=== PATIENT | female | born 1935 | race Caucasian/White ===

== ENCOUNTER 2017-08-31 19:41 | Emergency (ER) | payer OTHER ==
[~2017-08-31] VITALS: Ht 170.2 cm; Wt 59.0 kg
[~2017-08-31 19:41] MED LIST: AMLO2.5T PO; ATOR80TA41 PO; LISI10 PO; OMEP20TA39 PO; ST JTAB PO
[2017-08-31 19:43] VITALS: BP 182/84; PULSE 70; RESP 18; TEMP 97; O2SAT 96
--- NOTE | 2017-08-31 19:53 | PD ---
HPI Chief Complaint: nausea Time Seen by Provider: 19:46 Travel History International Travel<30 days: No Contact w/Intl Traveler<30days: No Traveled to known affect area: No History of Present Illness HPI 82-year-old female presents to the emergency department from home via EMS transport for evaluation of nausea. Patient reportedly has not felt well for the past 4 days with cough and congestion nausea and weakness. No report of fever or chills. No report of vomiting or diarrhea or abdominal pain. Patient denies any pain. Denies chest pain or shortness of breath. Denies productive cough. No report of hemoptysis hematemesis coffee-ground emesis melena hematochezia. Patient reports [place] able [place] walk [place] the [place] which is her normal. Patient reportedly was seen by her primary care provider earlier today in the office and diagnosed presumptively/clinically with influenza and was given a prescription. Patient states she filled the prescription took 1 dose of the medication has felt worse since taking the medication with increasing/persistent nausea. Patient has history of hypertension and anxiety. EMS reports that fire administered 1 dose of Zofran IV prior to arrival to the paramedics as well as obtain IV access. Patient's blood sugar was within acceptable range reportedly. Patient denies any pain and rates her discomfort 0 /10 intensity. PFSH Past Medical History Narrative Medical COPD hypertension dyslipidemia GERD diminished hearing anxiety lumbar disc disease s/p back surgery; no tobacco use; nursing notes reviewed Arthritis: No Asthma: Yes Autoimmune Disease: No Blood Disorders: No Anxiety: Yes Depression: No Heart Rhythm Problems: No Cancer: No Cardiovascular Problems: Yes High Cholesterol: Yes Chemotherapy: No Chest Pain: No Congestive Heart Failure: No COPD: Yes Cerebrovascular Accident: No Diabetes: No Diminished Hearing: Yes ([place], HEARING AIDS) Endocrine: No Gastrointestinal Disorders: Yes GERD: Yes Genitourinary: No Headaches: Yes Hiatal Hernia: No Hypertension: Yes Immune Disorder: No Implanted Vascular Access Dvce: No Kidney Stones: No Musculoskeletal: Yes (Back Pain , ruptured disc ) Neurologic: Yes Psychiatric: Yes Reproductive: No Respiratory: No Immunizations Current: No Migraines: No Myocardial Infarction: No Radiation Therapy: No Renal Failure: No Seizures: No Sickle Cell Disease: No Thyroid Disease: No Ulcer: No PNEUMOCCOCAL Vaccine (Year): 1 Menopausal: Yes Past Surgical History Abdominal Surgery: No AICD: No Arteriovenous Shunt: No Body Medical Devices: HX OF BACK SX Cardiac Surgery: No Ear Surgery: No Endocrine Surgery: No Eye Surgery: No Genitourinary Surgery: No Gynecologic Surgery: No Insulin Pump: No Joint Replacement: No Oral Surgery: No Pacemaker: No Thoracic Surgery: No Other Surgery: Yes (BACK RUPTURED DISC) Social History Alcohol Use: No Tobacco Use: No Substance Use: No Allergies-Medications (Allergen,Severity, Reaction): Coded Allergies: No Known Allergies (Unverified Adverse Reaction, Unknown, 08/31/17) Reported Meds & Prescriptions Reported Meds & Active Scripts Active Reported Zithromax Z-Roman (Azithromycin) 250 Mg Dspk 250 Mg PO DIRECTED 500 MG (2 tabs) day 1, then 1 tab days 2-5. Benzonatate 100 Mg Cap 100 Mg PO TID PRN Omeprazole 20 Mg Tab 20 Mg PO DAILY Lisinopril 10 Mg Tab 10 Mg PO DAILY Atorvastatin (Atorvastatin Calcium) 40 Mg Tab 40 Mg PO HS Aspirin 81 Mg Chew 81 Mg CHEW DAILY Amlodipine (Amlodipine Besylate) 2.5 Mg Tab 2.5 Mg PO DAILY Review of Systems Except as stated in HPI: all other systems reviewed are Neg General / Constitutional: No: Fever, Chills HENT: No: Congestion Cardiovascular: No: Chest Pain or Discomfort Respiratory: Positive: Cough, No: Shortness of Breath, Wheezing Gastrointestinal: Positive: Nausea, No: Vomiting, Diarrhea, Abdominal Pain Genitourinary: No: Dysuria, Flank Pain Musculoskeletal: No: Myalgias, Arthralgias Skin: No Rash Neurologic: Positive: Weakness, No: Dizziness, Syncope, Focal Abnormalities, Coordination Problem Psychiatric: No: Anxiety Hematologic/Lymphatic: No: Easy Bruising Physical Exam Narrative GENERAL: Well-developed well-nourished elderly female in no acute distress or respiratory distress; GCS 15 SKIN: Warm and dry. HEAD: Atraumatic. Normocephalic. EYES: Pupils equal and round. No scleral icterus. No injection or drainage. ENT: No nasal bleeding or discharge. Mucous membranes pink and moist. NECK: Trachea midline. No JVD. CARDIOVASCULAR: Regular rate and rhythm. RESPIRATORY: No accessory muscle use. Clear to auscultation. Breath sounds equal bilaterally. GASTROINTESTINAL: Abdomen soft, non-tender, nondistended. Hepatic and splenic margins not palpable. MUSCULOSKELETAL: Extremities without clubbing, cyanosis, or edema. No obvious deformities. NEUROLOGICAL: Awake and alert. No obvious cranial nerve deficits. Motor grossly within normal limits. Five out of 5 muscle strength in the arms and legs. Normal speech. PSYCHIATRIC: Appropriate mood and affect; insight and judgment normal. Data Data Last Documented VS Vital Signs Date Time Temp Pulse Resp B/P (MAP) Pulse Ox O2 Delivery O2 Flow Rate FiO2 08/31/17 23:09 64 18 149/72 (97) 94 08/31/17 21:48 Room Air 08/31/17 20:11 98.0 Orders Orders Electrocardiogram (08/31/17 19:46) Ckmb (Isoenzyme) Profile (08/31/17 19:46) Complete Blood Count With Diff (08/31/17 19:46) Comprehensive Metabolic Panel (08/31/17 19:46) Magnesium (Mg) (08/31/17 19:46) Prothrombin Time / Inr (Pt) (08/31/17 19:46) Act Partial Throm Time (Ptt) (08/31/17 19:46) Troponin I (08/31/17 19:46) Lipase (08/31/17 19:46) Chest, Single Ap (08/31/17 19:46) Ecg Monitoring (08/31/17 19:46) Bilateral Bp Monitoring (08/31/17 19:46) Iv Access Insert/Monitor (08/31/17 19:46) Oximetry (08/31/17 19:46) Oxygen Administration (08/31/17 19:46) Sodium Chloride 0.9% Flush (Ns Flush) (08/31/17 20:00) Lactic Acid (08/31/17 19:46) Influenzae A/B Antigen (08/31/17 19:46) Urinalysis - C+S If Indicated (08/31/17 20:08) CKMB (08/31/17 20:00) CKMB% (08/31/17 20:00) Metoclopramide Inj (Reglan Inj) (08/31/17 22:15) Ed Discharge Order (08/31/17 23:04) Labs Laboratory Tests Test 08/31/17 20:00 08/31/17 20:10 White Blood Count 3.3 TH/MM3 Red Blood Count 3.66 MIL/MM3 Hemoglobin 11.6 GM/DL Hematocrit 34.0 % Mean Corpuscular Volume 92.9 FL Mean Corpuscular Hemoglobin 31.8 PG Mean Corpuscular Hemoglobin Concent 34.2 % Red Cell Distribution Width 12.5 % Platelet Count 147 TH/MM3 Mean Platelet Volume 7.0 FL Neutrophils (%) (Auto) 67.2 % Lymphocytes (%) (Auto) 21.0 % Monocytes (%) (Auto) 10.7 % Eosinophils (%) (Auto) 0.7 % Basophils (%) (Auto) 0.4 % Neutrophils # (Auto) 2.3 TH/MM3 Lymphocytes # (Auto) 0.7 TH/MM3 Monocytes # (Auto) 0.3 TH/MM3 Eosinophils # (Auto) 0.0 TH/MM3 Basophils # (Auto) 0.0 TH/MM3 CBC Comment DIFF FINAL Differential Comment Prothrombin Time 10.7 SEC Prothromb Time International Ratio 1.1 RATIO Activated Partial Thromboplast Time 27.8 SEC Blood Urea Nitrogen 23 MG/DL Creatinine 1.10 MG/DL Random Glucose 108 MG/DL Total Protein 7.8 GM/DL Albumin 3.5 GM/DL Calcium Level 8.8 MG/DL Magnesium Level 1.7 MG/DL Alkaline Phosphatase 93 U/L Aspartate Amino Transf (AST/SGOT) 33 U/L Alanine Aminotransferase (ALT/SGPT) 26 U/L Total Bilirubin 0.3 MG/DL Sodium Level 131 MEQ/L Potassium Level 4.1 MEQ/L Chloride Level 96 MEQ/L Carbon Dioxide Level 28.1 MEQ/L Anion Gap 7 MEQ/L Estimat Glomerular Filtration Rate 48 ML/MIN Lactic Acid Level 0.8 mmol/L Total Creatine Kinase 192 U/L Creatine Kinase MB 4.6 NG/ML Troponin I 0.02 NG/ML Lipase 151 U/L Urine Color YELLOW Urine Turbidity CLEAR Urine pH 7.5 Urine Specific [place] 1.010 Urine Protein NEG mg/dL Urine Glucose (UA) NEG mg/dL Urine Ketones NEG mg/dL Urine Occult Blood TRACE Urine Nitrite NEG Urine Bilirubin NEG Urine Leukocyte Esterase NEG Urine RBC 0-3 /hpf Urine WBC 0-2 /hpf Urine Squamous Epithelial Cells 0-5 /hpf Urine Bacteria RARE /hpf Microscopic Urinalysis Comment CULT NOT INDICATED MDM Medical Decision Making Medical Screen Exam Complete: Yes Emergency Medical Condition: Yes Medical Record Reviewed: Yes Interpretation(s) EKG: Normal sinus rhythm rate 65 QRS septally age-indeterminate V1 V2 no acute ST elevation or ectopy noted; septal changes are new since prior EKG 02/11/16 Influenza A/B antigen: Positive influenza B CK 192, not elevated; MB 4.6 elevated; MB percent 2.2% not elevated Troponin I less than 0.02, not elevated Lactic acid 0.8, not elevated CBC with automated differential mild decreased total white cell count of 3300 with absolute neutrophil #2300 automated differential grossly within normal limits except for mild monocytosis mild anemia and mild thrombocytopenia Metabolic panel remarkable for renal insufficiency creatinine 1.10 (near her baseline) with a GFR of 48 Urinalysis grossly within normal limits Coagulation studies within normal limits CBC & BMP Diagram 08/31/17 20:00 Total Protein 7.8, Albumin 3.5, Calcium Level 8.8, Magnesium Level 1.7, Alkaline Phosphatase 93, Aspartate Amino Transf (AST/SGOT) 33, Alanine Aminotransferase (ALT/SGPT) 26, Total Bilirubin 0.3 Last Impressions Chest X-Ray 08/31/171945 Signed Impressions: Service Date/Time: Thursday, August 31, 2017 21:09 - CONCLUSION: No acute pulmonary infiltrates. Osei Julien MD Differential Diagnosis Nausea, adverse medication reaction, electrolyte disturbance, atypical chest pain, ACS, [place], arrhythmia, viral syndrome, UTI, sepsis Narrative Course Patient placed on english language learner tutor with continuous pulse oximetry IV access obtained prior to arrival to the department specimens collected and sent for resulting EKG ordered; glucose: 118. EKG: Normal sinus rhythm rate 65 QRS septally age-indeterminate V1 V2 no acute ST elevation or ectopy noted; septal changes are new since prior EKG 02/11/16 Influenza A/B antigen: Positive influenza B CK 192, not elevated; MB 4.6 elevated; MB percent 2.2% not elevated Troponin I less than 0.02, not elevated Lactic acid 0.8, not elevated CBC with automated differential mild decreased total white cell count of 3300 with absolute neutrophil #2300 automated differential grossly within normal limits except for mild monocytosis mild anemia and mild thrombocytopenia Metabolic panel remarkable for renal insufficiency creatinine 1.10 (near her baseline) with a GFR of 48 Urinalysis grossly within normal limits Coagulation studies within normal limits At 9 PM patient is informed that her influenza B antigen is positive. Patient has been having symptoms for 4 days therefore out of the window for beneficial administration of Tamiflu. Patient no longer reports any nausea. CXR: pending RN called pharmacy and confirmed RX zpak and meagan hurt At 10:05 PM patient now again complains of nausea; patient administered Reglan 10 mg IV blood pressure is starting to correct on its own, BP: 169/76. Patient feels well after Reglan, no nausea no vomiting able to tolerate oral hydration; patient is aware that her flu test is positive is encouraged to follow-up with her primary care provider is aware that she is not a Tamiflu candidate due to duration of symptoms, and to continue her chronic medications as clinically prescribed. Patient is encouraged to monitor temperature and take acetaminophen as needed for fever 100.4F or greater. Patient is encouraged to return to the emergency department for concerns or change in condition. Diagnosis Primary Impression: Influenza B Additional Impressions: Nausea COPD (chronic obstructive pulmonary disease) Qualified Codes: J44.9 - Chronic obstructive pulmonary disease, unspecified Referrals: Primary Care Physician 1 day Patient Instructions: General Instructions Additional Instructions: Follow-up with primary care provider Monitor temperature every 4 hours with the monitor and take as needed acetaminophen/Tylenol for fever 100.4F or greater Return to the emergency department for any concerns or change in condition Increase fluid hydration continue current medications as currently prescribed Med/Other Pt SpecificInfo: No Change to Meds Disposition: 01 DISCHARGE HOME Condition: Stable Anabel Lopez MD Aug 31, 2017 19:53
[2017-08-31] MEDS ORDERED: SODIUM CHLORIDE 0.9% FLUSH 10 ML FLUSH IVF PRN (20:00)
[2017-08-31 20:09] VITALS: PULSE 67; RESP 18; O2SAT 94
[2017-08-31 20:11] VITALS: BP_SYST 172; BP_SYST 174; BP_DIAS 84; BP_DIAS 90; PULSE 67; RESP 18; TEMP 98; O2SAT 95
[2017-08-31 20:15] LABS: AUTOMATED NEUTROPHIL # 2.3 TH/MM3 (1.8-7.7); BASOPHIL % 0.4 % (0.0-2.0); EOSINOPHIL % 0.7 % (0.0-4.0); HEMOGLOBIN 11.6 GM/DL (11.6-15.3); LYMPHOCYTE # 0.7 TH/MM3 (1.0-4.8); MEAN CELL VOLUME 92.9 FL (80.0-100.0); MEAN CORPUSCULAR HEMOGLOBIN 31.8 PG (27.0-34.0); MEAN CORPUSCULAR HGB CONC 34.2 % (32.0-36.0); MONO % 10.7 % (0.0-8.0); MONOCYTE # 0.3 TH/MM3 (0-0.9); NEUT % 67.2 % (16.0-70.0); PLATELET COUNT 147 TH/MM3 (150-450); RED BLOOD COUNT 3.66 MIL/MM3 (4.00-5.30); RED CELL DISTRIBUTION WIDTH 12.5 % (11.6-17.2); WHITE BLOOD COUNT 3.3 TH/MM3 (4.0-11.0)
[2017-08-31 20:27] LABS: CHLORIDE 96 MEQ/L (98-107); SODIUM (NA) 131 MEQ/L (136-145)
[2017-08-31 20:28] LABS: BILIRUBIN, URINE NEG (NEG); BLOOD, URINE TRACE (NEG); GLUCOSE,URINE NEG (NEG); KETONE, URINE NEG (NEG); NITRITE,URINE NEG (NEG); PH, URINE 7.5 (5.0-8.5); URINE LEUKOCYTE ESTERASE NEG (NEG)
[2017-08-31 20:31] LABS: CALCIUM 8.8 MG/DL (8.5-10.1)
[2017-08-31 20:32] LABS: ALBUMIN 3.5 GM/DL (3.4-5.0); BICARBONATE 28.1 MEQ/L (21.0-32.0); BLOOD UREA NITROGEN 23 MG/DL (7-18); GLUCOSE,RANDOM 108 MG/DL (74-106); MAGNESIUM 1.7 MG/DL (1.5-2.5)
[2017-08-31 20:32] LABS: RBC, URINE 0-3 /hpf (0-3); URINE COLOR YELLOW (YELLW/STRAW); WBC, URINE 0-2 /hpf (0-5)
[2017-08-31 20:33] LABS: INTERNATIONAL NORMALIZED RATIO 1.1 RATIO; PROTHROMBIN TIME - PATIENT 10.7 SEC (9.8-11.6)
[2017-08-31 20:33] LABS: BACTERIA, URINE RARE /hpf; SQUAMOUS EPITHELIAL CELL URINE 0-5 /hpf (0-5)
[2017-08-31 20:34] LABS: ALT (GPT) 26 U/L (10-53); AST (GOT) 33 U/L (15-37)
[2017-08-31 20:35] LABS: GLOMERULAR FILTRATION RATE 48 ML/MIN (>89)
[2017-08-31 20:36] LABS: TOTAL BILIRUBIN ADULT 0.3 MG/DL (0.2-1.0); TOTAL PROTEIN 7.8 GM/DL (6.4-8.2)
[2017-08-31 20:37] LABS: ALKALINE PHOSPHATASE 93 U/L (45-117)
[2017-08-31 20:40] LABS: TROPONIN I 0.02 NG/ML (0.02-0.05)
[2017-08-31] MEDS ORDERED: OMEP20TA93 PO (20:45)
[2017-08-31] MEDS ORDERED: ZITHTAB PO (20:45)
[2017-08-31] MEDS ORDERED: LISI10TA3 PO (20:45)
[2017-08-31] MEDS ORDERED: AMLO2.5T PO (20:45)
[2017-08-31] MEDS ORDERED: ATOR40TA16 PO (20:45)
[2017-08-31] MEDS ORDERED: ASPI-516 CHEW (20:45)
[2017-08-31] MEDS ORDERED: BENZ1CAP54 PO (20:45)
[2017-08-31 20:49] VITALS: BP 180/79; PULSE 66; RESP 18; O2SAT 94
[2017-08-31 21:48] VITALS: BP 169/76; PULSE 70; RESP 18; O2SAT 96
--- NOTE | 2017-08-31 21:49 | RADRPT ---
EXAM DATE/TIME: 08/31/2017 21:09 [facility] COMPARISON: No previous studies available for comparison. INDICATIONS : Vomiting. MEDICAL HISTORY : Hypertension. Hypercholesterolemia. Chronic obstructive pulmonary disease. GERD. SURGICAL HISTORY : None. ENCOUNTER: Initial ACUITY: 1 day PAIN SCORE: 0/10 LOCATION: Bilateral chest FINDINGS: A single view of the chest demonstrates the lungs to be symmetrically aerated without evidence of mas s, infiltrate or effusion. The cardiomediastinal contours are unremarkable. Osseous structures are intact. CONCLUSION: No acute pulmonary infiltrates. Osei Julien MD on August 31, 2017 at 21:46 Board Certified Radiologist. This report was verified electronically.
[2017-08-31] MEDS ORDERED: METOCLOPRAMIDE HCL 10 MG/2 ML VIAL IV PUSH ONE (22:15)
[2017-08-31 23:09] VITALS: BP 149/72
--- NOTE | 2017-09-01 12:52 | EKG ---
Date Performed: 08/31/2017 Time Performed: 19:57:11 PTAGE: 82 years EKG: Sinus rhythm SEPTAL MYOCARDIAL INFARCTION ABNORMAL ECG PREVIOUS TRACING : 02/11/2016 10.12 DOCTOR: Marcus Hennessy Interpretating Date/Time 09/01/2017 12:48:18
== END 2017-08-31 23:29 | disposition home or self-care (01) ==
LOC: PHED 19:41
DX: J10.1 Influenza due to other identified influenza virus with other respiratory manifestations (principal); R11.0 Nausea; J44.9 Chronic obstructive pulmonary disease, unspecified; J45.909 Unspecified asthma, uncomplicated; E78.00 Pure hypercholesterolemia, unspecified; I10 Essential (primary) hypertension; Z79.82 Long term (current) use of aspirin
CPT/HCPCS: 71045; 80053; 81001; 82550; 82552; 83605; 83690; 83735; 84484; 85025; 85610; 85730; 87804; 93005; 96374; 99285; J2765